=== PATIENT | female | born 2005 | race Caucasian/White ===

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

== ENCOUNTER 2023-04-10 11:41 | Emergency (ER) | payer BC, OTHER, SELFPAY ==
[2023-04-10 12:24] VITALS: BP 116/72; PULSE 110; RESP 18; TEMP 36.7; O2SAT 98
--- NOTE | 2023-04-10 13:00 | ED.URI ---
HPI - URI/Sore Throat General Chief Complaint: Upper Respiratory Infection Stated Complaint: eye irritation,sorethroat Time Seen by Provider: 04/10/23 12:49 Source: patient and RN notes reviewed Mode of arrival: ambulatory Limitations: no limitations History of Present Illness HPI Narrative: Patient presents today complaining of sore throat since last night and right eye crusting since this morning. Denies vision changes, foreign body sensation. Denies congestion, rhinorrhea, cough. States brother was recently diagnosed with pinkeye and sister has been sick with cold symptoms. She took Zyrtec, vitamin-D and C last night with some mild relief. Currently rates her pain 310. Patient wears contacts. Related Data Home Medications Medication Instructions Recorded Confirmed etonogestrel 0.12 mg-ethinyl 1 vag ring vaginal ONCE 02/16/22 04/10/23 estradiol 0.015 mg/24 hr vaginal ring (NuvaRing) Allergies Allergy/AdvReac Type Severity Reaction Status Date / Time No Known Allergies Allergy Verified 04/10/23 12:39 Review of Systems Review of Systems: CONSTITUTIONAL: Denies body aches, fever, chills, or sweats. EYES: Denies visual changes.+ right eye redness and discharge ENT: Denies rhinorrhea, congestion, or otalgia.+ sore throat CARDIOVASCULAR: Denies chest pain, palpitations, or edema. RESPIRATORY: Denies cough or dyspnea. GASTROINTESTINAL: Denies abdominal pain, nausea, vomiting, or diarrhea. GENITOURINARY: Denies dysuria or hematuria. SKIN: Denies rash, itching, or wounds. MUSCULOSKELETAL: Denies back pain, joint pain, or myalgia. NEUROLOGIC: Denies headache, numbness, tingling, or weakness. PSYCH: Denies depression or anxiety. [facility] Past Medical History Medical History Anemia RUQ abdominal pain Social History Social History Smoking status: Never smoker Alcohol intake: never Substance use: never Living arrangements: with family Occupation/Education: student Gender identity (if verbalized by the patient): Female Sexual Orientation (if Verbalized by the Patient): Straight or Heterosexual Comments At time of signature, I have reviewed and agree with nursing past medical, surgical, social and family history unless otherwise noted. Please see nursing chart for further information. There is no relevant family history pertinent to the presenting complaint Exam Narrative: GENERAL: Well-appearing, well-nourished, and in no acute distress. HEAD: Normocephalic, atraumatic. EYES: EOMI. PERRL. Right eye: Mildly injected conjunctiva with no active drainage. ENT: Mucous membranes pink and moist. Nares clear. No rhinorrhea. TMs normal bilaterally. Throat mildly erythematous without edema or exudate. Uvula midline. NECK: Normal AROM. Supple. No lymphadenopathy. CHEST: No respiratory distress. Clear to auscultation. HEART: Regular rate and rhythm. No murmur appreciated. EXTREMITIES: Normal range of motion. No edema. SKIN: Warm, dry, no rash. Capillary refill normal. Normal skin turgor. NEURO: No focal deficits. Alert and oriented x3. Gait steady. PSYCH: Normal affect. No signs of depression or anxiety. Course Course Level of Care: Express Care Visit Vital Signs Vital signs: Vital Signs Temperature 98.0 F 04/10/23 12:24 Pulse Rate 110 H 04/10/23 12:24 Respiratory Rate 18 04/10/23 12:24 Blood Pressure 116/72 04/10/23 12:24 Pulse Oximetry 98 04/10/23 12:24 Oxygen Delivery Room Air 04/10/23 12:24 Temperature 98.0 F 04/10/23 12:24 Pulse Rate 110 H 04/10/23 12:24 Respiratory Rate 18 04/10/23 12:24 Blood Pressure 116/72 04/10/23 12:24 Pulse Oximetry 98 04/10/23 12:24 Oxygen Delivery Room Air 04/10/23 12:24 Reviewed MDM - URI/Sore Throat MDM Narrative Medical decision making narrative: Patient declines strep
== END 2023-04-10 13:10 | disposition home or self-care (01) ==
PROVIDERS: Emergency Provider Nurse Practitioner; PCP Physician Assistant Medical
DX: H10.31 Unspecified acute conjunctivitis, right eye (principal); J02.9 Acute pharyngitis, unspecified
CPT/HCPCS: 99213; G0463